=== PATIENT | female | born 1945 | race Caucasian/White ===

== ENCOUNTER 2016-12-22 19:10 | Inpatient (IN) | payer MEDICARE, MEDICAID ==
[2016-12-22] MEDS ORDERED: FENTANYL CITRATE INJ/PF 100 MCG/2 ML AMPUL IV ONE (19:40)
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
[2016-12-22 21:06] LABS: ANION GAP 14 (5-19); BLOOD UREA NITROGEN 47 mg/dL (7-20); CALCIUM 8.9 mg/dL (8.4-10.2); CARBON DIOXIDE 23 mmol/L (22-30); CHLORIDE 108 mmol/L (98-107); GLUCOSE 135 mg/dL (75-110); POTASSIUM 5.1 mmol/L (3.6-5.0); SODIUM 144.7 mmol/L (137-145)
[2016-12-22] MEDS ORDERED: ONDANSETRON HCL INJ/PF 4 MG/2 ML SDV IV ONE (22:23)
[2016-12-22] MEDS ORDERED: MORPHINE SULFATE 10 MG/ML INJ IV ONE (22:23)
[2016-12-22] MEDS ORDERED: NICARDIPINE HCL RTU, ISO-OS 200 ML IV PRN (22:58)
--- NOTE | 2016-12-22 23:04 | EKG REPORT ---
SEVERITY:- ABNORMAL ECG - SINUS RHYTHM VENTRICULAR PREMATURE COMPLEX LEFT ANTERIOR FASCICULAR BLOCK LVH WITH SECONDARY REPOLARIZATION ABNORMALITY ANTERIOR Q WAVES, POSSIBLY DUE TO LVH BORDERLINE PROLONGED QT INTERVAL : Confirmed by: Suly Miranda MD 22-Dec-2016 23:03:20
[2016-12-23 01:30] LABS: ABSOLUTE BASOPHILS # (AUTO) 0.1 10^3/uL (0.0-0.2); ABSOLUTE EOSINOPHILS # (AUTO) 0.1 10^3/uL (0.0-0.6); ABSOLUTE MONOCYTES (AUTO) 0.5 10^3/uL (0.1-1.4); ABSOLUTE NEUT (AUTO) 8.5 10^3/uL (1.7-8.2); BASOPHILS % (AUTO) 0.5 % (0-2); HEMATOCRIT 36.5 % (36.0-47.0); HEMOGLOBIN 11.6 g/dL (12.0-15.5); HGB HCT DIFFERENCE -1.7; LYMPHOCYTES % (AUTO) 9.7 % (13-45); MEAN CORPUSCULAR HEMOGLOBIN 28.5 pg (27.0-33.4); MEAN CORPUSCULAR HGB CONC 31.7 g/dL (32.0-36.0); MEAN CORPUSCULAR VOLUME 90 fl (80-97); MONOCYTES % (AUTO) 4.9 % (3-13); RED BLOOD COUNT 4.06 10^6/uL (3.72-5.28); RED CELL DISTRIBUTION WIDTH 13.1 % (11.5-14.0); SEGMENTED NEUTROPHILS % (AUTO) 83.9 % (42-78); WHITE BLOOD COUNT 10.2 10^3/uL (4.0-10.5)
[2016-12-23 01:44] LABS: ALBUMIN 3.8 g/dL (3.5-5.0); BILIRUBIN,TOTAL 0.5 mg/dL (0.2-1.3)
[2016-12-23 01:56] LABS: CREATINE KINASE MB 0.9 ng/mL (<4.55)
[2016-12-23 01:59] LABS: APPEARANCE,URINE CLEAR; BILIRUBIN,URINE NEGATIVE (NEGATIVE); GLUCOSE, URINE 150 mg/dL (NEGATIVE); KETONES,URINE NEGATIVE (NEGATIVE); LEUKOCYTE ESTERASE,URINE NEGATIVE (NEGATIVE); NITRITE,URINE NEGATIVE (NEGATIVE); PROTEIN,URINE >=500 mg/dL (NEGATIVE); URINE SPECIFIC GRAVITY 1.012; UROBILINOGEN,URINE NEGATIVE mg/dL (<2.0)
[2016-12-23 01:59] LABS: TROPONIN I 0.041 ng/mL
[2016-12-23 04:04] LABS: ANION GAP 13 (5-19); BLOOD UREA NITROGEN 46 mg/dL (7-20); CALCIUM 8.7 mg/dL (8.4-10.2); CARBON DIOXIDE 23 mmol/L (22-30); CHLORIDE 108 mmol/L (98-107); GLUCOSE 145 mg/dL (75-110); POTASSIUM 5.1 mmol/L (3.6-5.0); SODIUM 144.2 mmol/L (137-145)
[2016-12-23] MEDS ORDERED: GLUCAGON,HUMAN RECOMB 1 MG INJ IM PRN (04:20)
[2016-12-23] MEDS ORDERED: DEXTROSE 50%-WATER 25 GM/50 ML DISP.SYRIN IV PRN ×2 (04:20)
[2016-12-23] MEDS ORDERED: DEXTROSE 40% GEL 15 GM TUBE PO PRN ×2 (04:20)
[2016-12-23] MEDS ORDERED: INSULIN LISPRO 100 UNIT/ML 3 ML VIAL SUBCUT PRN (04:20)
[2016-12-23] MEDS ORDERED: ACETAMINOPHEN 325 MG TABLET PO PRN (04:22)
[2016-12-23] MEDS ORDERED: NICARDIPINE HCL RTU, ISO-OS 20 MG/200 ML RTUINJ IV PRN (04:22)
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
[2016-12-23] MEDS ORDERED: ONDANSETRON HCL INJ/PF 4 MG/2 ML SDV ONE (06:43)
[2016-12-23] MEDS: 1/2 NORMAL SALINE 1,000 ML IV PRN ×2 (06:44→21:36)
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
[2016-12-23] MEDS ORDERED: INFLUENZA ADLT QUAD (36MOS+) 2016-17 VAC 0.5 ML SYR IM PRN (07:03)
[2016-12-23 07:43] LABS: ABSOLUTE BASOPHILS # (AUTO) 0.1 10^3/uL (0.0-0.2); ABSOLUTE EOSINOPHILS # (AUTO) 0.1 10^3/uL (0.0-0.6); ABSOLUTE MONOCYTES (AUTO) 0.6 10^3/uL (0.1-1.4); ABSOLUTE NEUT (AUTO) 6.9 10^3/uL (1.7-8.2); BASOPHILS % (AUTO) 0.7 % (0-2); EOSINOPHILS % (AUTO) 0.7 % (0-6); HEMATOCRIT 35.5 % (36.0-47.0); HEMOGLOBIN 11.7 g/dL (12.0-15.5); HGB HCT DIFFERENCE -0.4; LYMPHOCYTES % (AUTO) 11.5 % (13-45); MEAN CORPUSCULAR HEMOGLOBIN 29.2 pg (27.0-33.4); MEAN CORPUSCULAR VOLUME 88 fl (80-97); MONOCYTES % (AUTO) 6.8 % (3-13); RED BLOOD COUNT 4.01 10^6/uL (3.72-5.28); RED CELL DISTRIBUTION WIDTH 13.1 % (11.5-14.0); SEGMENTED NEUTROPHILS % (AUTO) 80.3 % (42-78); WHITE BLOOD COUNT 8.6 10^3/uL (4.0-10.5)
[2016-12-23 07:57] LABS: ANION GAP 12 (5-19); BLOOD UREA NITROGEN 46 mg/dL (7-20); CALCIUM 8.7 mg/dL (8.4-10.2); CARBON DIOXIDE 23 mmol/L (22-30); CHLORIDE 109 mmol/L (98-107); CREATININE RESULT 5.61 mg/dL (0.52-1.25); GLUCOSE 128 mg/dL (75-110); LIPASE 173.8 U/L (23-300); POTASSIUM 5.1 mmol/L (3.6-5.0); SODIUM 143.7 mmol/L (137-145)
[2016-12-23] MEDS ORDERED: ONDANSETRON HCL INJ/PF 4 MG/2 ML SDV IV ONE ×2 (09:54→10:45)
[2016-12-23] MEDS ORDERED: ONDANSETRON HCL INJ/PF 4 MG/2 ML SDV IV PRN (09:54)
[2016-12-23] MEDS: DOCUSATE SODIUM 100 MG CAPSULE PO SCH ×2 (11:44→17:35)
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
[2016-12-23] MEDS ORDERED: (PENDING PHARMACY ID) (Hydroxyzine Hcl [Hydroxyzine Hcl] 25 MG) PO PRN (16:43)
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
[2016-12-23] MEDS ORDERED: ISOSORBIDE MONONITRATE 30 MG TAB.ER.24H PO ONE (18:00)
[2016-12-23] MEDS ORDERED: FEBUXOSTAT 40 MG TABLET PO ONE (18:00)
[2016-12-23] MEDS ORDERED: METOPROLOL TARTRATE 100 MG TABLET PO ONE (18:00)
[2016-12-23] MEDS ORDERED: HYDROXYZINE PAMOATE 25 MG CAPSULE PO PRN (18:01)
[2016-12-23] MEDS: METOPROLOL TARTRATE 100 MG TABLET PO SCH (18:44)
[2016-12-23] MEDS ORDERED: LANSOPRAZOLE 30 MG TAB.RAP.DR PO ONE (19:00)
[2016-12-23] MEDS ORDERED: METOPROLOL TARTRATE 100 MG TABLET PO SCH (22:00)
[2016-12-24 04:32] LABS: HEMATOCRIT 30.8 % (36.0-47.0); HGB HCT DIFFERENCE -0.8; MEAN CORPUSCULAR HEMOGLOBIN 29.2 pg (27.0-33.4); MEAN CORPUSCULAR HGB CONC 32.6 g/dL (32.0-36.0); MEAN CORPUSCULAR VOLUME 89 fl (80-97); RED BLOOD COUNT 3.44 10^6/uL (3.72-5.28); RED CELL DISTRIBUTION WIDTH 13.1 % (11.5-14.0); WHITE BLOOD COUNT 8.6 10^3/uL (4.0-10.5)
[2016-12-24 04:44] LABS: ANION GAP 14 (5-19); BLOOD UREA NITROGEN 40 mg/dL (7-20); CARBON DIOXIDE 20 mmol/L (22-30); CHLORIDE 106 mmol/L (98-107); GLUCOSE 110 mg/dL (75-110); MAGNESIUM 1.4 mg/dL (1.6-2.3); POTASSIUM 4.4 mmol/L (3.6-5.0); SODIUM 139.5 mmol/L (137-145)
[2016-12-24 04:46] LABS: CREATININE RESULT 5.31 mg/dL (0.52-1.25)
[2016-12-24] MEDS: METOPROLOL TARTRATE 100 MG TABLET PO SCH ×2 (05:55→17:09)
[2016-12-24] MEDS: LANSOPRAZOLE 30 MG TAB.RAP.DR PO SCH (05:56)
[2016-12-24] MEDS: ISOSORBIDE MONONITRATE 30 MG TAB.ER.24H PO SCH (09:20)
[2016-12-24] MEDS: FEBUXOSTAT 40 MG TABLET PO SCH (09:20)
[2016-12-24] MEDS: DOCUSATE SODIUM 100 MG CAPSULE PO SCH ×2 (09:20→17:09)
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
[2016-12-24] MEDS: 1/2 NORMAL SALINE 1,000 ML IV PRN (15:10)
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
[2016-12-25] MEDS: 1/2 NORMAL SALINE 1,000 ML IV PRN ×2 (04:28→15:56)
[2016-12-25] MEDS: LANSOPRAZOLE 30 MG TAB.RAP.DR PO SCH (05:19)
[2016-12-25] MEDS: METOPROLOL TARTRATE 100 MG TABLET PO SCH ×2 (05:19→17:20)
[2016-12-25 08:56] LABS: ANION GAP 12 (5-19); BLOOD UREA NITROGEN 48 mg/dL (7-20); CALCIUM 8.2 mg/dL (8.4-10.2); CARBON DIOXIDE 20 mmol/L (22-30); CHLORIDE 105 mmol/L (98-107); GLUCOSE 111 mg/dL (75-110); SODIUM 136.6 mmol/L (137-145)
[2016-12-25] MEDS: DOCUSATE SODIUM 100 MG CAPSULE PO SCH ×2 (09:47→17:22)
[2016-12-25] MEDS: ISOSORBIDE MONONITRATE 30 MG TAB.ER.24H PO SCH (09:47)
[2016-12-25] MEDS: FEBUXOSTAT 40 MG TABLET PO SCH (09:48)
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
[2016-12-26 05:16] LABS: ABSOLUTE BASOPHILS # (AUTO) 0.1 10^3/uL (0.0-0.2); ABSOLUTE EOSINOPHILS # (AUTO) 0.2 10^3/uL (0.0-0.6); ABSOLUTE LYMPHOCYTES (AUTO) 1.4 10^3/uL (0.5-4.7); ABSOLUTE MONOCYTES (AUTO) 0.7 10^3/uL (0.1-1.4); BASOPHILS % (AUTO) 0.7 % (0-2); EOSINOPHILS % (AUTO) 2.5 % (0-6); HEMATOCRIT 29.3 % (36.0-47.0); HEMOGLOBIN 9.7 g/dL (12.0-15.5); HGB HCT DIFFERENCE -0.2; LYMPHOCYTES % (AUTO) 16.5 % (13-45); MEAN CORPUSCULAR HEMOGLOBIN 29.7 pg (27.0-33.4); MEAN CORPUSCULAR HGB CONC 33.3 g/dL (32.0-36.0); MEAN CORPUSCULAR VOLUME 89 fl (80-97); RED BLOOD COUNT 3.28 10^6/uL (3.72-5.28); SEGMENTED NEUTROPHILS % (AUTO) 72.3 % (42-78); WHITE BLOOD COUNT 8.3 10^3/uL (4.0-10.5)
[2016-12-26] MEDS: METOPROLOL TARTRATE 100 MG TABLET PO SCH ×2 (05:25→17:33)
[2016-12-26] MEDS: LANSOPRAZOLE 30 MG TAB.RAP.DR PO SCH (05:25)
[2016-12-26 05:37] LABS: MAGNESIUM 1.5 mg/dL (1.6-2.3); PHOSPHORUS 6.1 mg/dL (2.5-4.5)
[2016-12-26 08:17] LABS: ANION GAP 12 (5-19); BLOOD UREA NITROGEN 50 mg/dL (7-20); CALCIUM 8.3 mg/dL (8.4-10.2); CARBON DIOXIDE 19 mmol/L (22-30); CHLORIDE 107 mmol/L (98-107); CREATININE RESULT 6.52 mg/dL (0.52-1.25); GLUCOSE 104 mg/dL (75-110); POTASSIUM 4.8 mmol/L (3.6-5.0); SODIUM 137.5 mmol/L (137-145)
[2016-12-26] MEDS ORDERED: BACITRACIN INJ 50,000 UNIT VIAL IR PRN (08:33)
[2016-12-26] MEDS ORDERED: OXYCODONE-ACETAMINOPHEN 5-325 MG TABLET PO PRN (08:36)
[2016-12-26] MEDS ORDERED: DIAZEPAM 5 MG TABLET PO PRN (08:37)
[2016-12-26] MEDS: MAGNESIUM SULFATE/D5W 100 ML IV SCH ×2 (09:28→11:29)
[2016-12-26] MEDS ORDERED: FENTANYL CITRATE INJ/PF 100 MCG/2 ML AMPUL ONE (09:37)
[2016-12-26] MEDS ORDERED: MIDAZOLAM 2 MG/2 ML INJ ONE (09:37)
[2016-12-26] MEDS ORDERED: LIDOCAINE 0.5% INJ-PF (5 MG/ML) 50 ML SDV ONE (10:05)
--- NOTE | 2016-12-26 11:28 | Operative Report ---
Operative Report DATE OF SURGERY: 12/26/16 PREOPERATIVE DIAGNOSIS: End stage renal disease requiring hemodialysis. POSTOPERATIVE DIAGNOSIS: End stage renal disease requiring hemodialysis. OPERATION: #1 evaluation and real-time access in the right internal jugular vein. #2 placement of permacatheter via right internal jugular vein. #3 angiogram and interpretation. SURGEON: SIDRA FRAIRE OUTREACH LIAISON: none ANESTHESIA: Moderate Sedation TISSUE REMOVED OR ALTERED: Not applicable. COMPLICATIONS: None ESTIMATED BLOOD LOSS: 5 mL. INTRAOPERATIVE FINDINGS: Of a substantial right internal jugular vein, about 1.5 cm, adequate to support PermCath. Good position and function with the tip of the catheter well down in the right atrial pool. Easy egress of blood and ingress of heparinized solution. Smooth flow of contrast through the right atrium, ventricle and pulmonary outflow tract. PROCEDURE: After obtaining informed consent, the patient was taken to the Conveyor Monitor and positioned supine. The right neck and chest were prepared with chlorhexidine and draped out with sterile linen. After the " universal timeout", in which it was verified that the patient continued to receive antibiotic, the procedure commenced. A steriley sheathed ultrasound probe was used to evaluate the right internal jugular vein. Local anesthesia was infiltrated adjacent to the probe. Access into the right internal jugular vein was obtained using a micropuncture needle, followed by micropuncture wire and then a micropuncture catheter. This was followed by introduction of a 0.035 guidewire the tip of which was placed down into the inferior vena cava . A 23 cm long split catheter was now positioned over the chest and an exit site marked and locally anesthetized ,the catheter was placed between the 2 incisions. Proximally, the catheter was now positioned using a peel-away sheath, after dilation. Easy ingress of heparinized solution and egress of blood obtained through both ports. A completion angiogram was done by injecting contrast. The findings were as dictated. The neck incision was now closed using interrupted 3-0 PDS to the subcutaneous tissues, the catheter was anchored at the exit site using 3- 0 PDS. A Biopatch device was now placed adjacent to the catheter. Dressings were applied and the procedure concluded. Exposure time: 0.1 minutes. Exposure: 22 cGy per centimeters squared. Contrast amount: 5 mL of [id number] low osmolality. Copies of the dictated operative report for Dr. Sidra Syed MD.concluded. Copies of the dictated operative report for Dr. Sidra Syed MD.
[2016-12-26] MEDS: ISOSORBIDE MONONITRATE 30 MG TAB.ER.24H PO SCH (11:30)
[2016-12-26] MEDS: DOCUSATE SODIUM 100 MG CAPSULE PO SCH ×2 (11:30→17:33)
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
[2016-12-26] MEDS: FEBUXOSTAT 40 MG TABLET PO SCH (12:18)
[2016-12-26] MEDS: HYDROMORPHONE HCL INJ/PF 2 MG/ML AMPULE IV PRN ×2 (15:05→21:41)
[2016-12-27] MEDS: METOPROLOL TARTRATE 100 MG TABLET PO SCH ×2 (06:03→17:49)
[2016-12-27] MEDS: LANSOPRAZOLE 30 MG TAB.RAP.DR PO SCH (06:04)
[2016-12-27 06:51] LABS: HEMATOCRIT 29.6 % (36.0-47.0); HEMOGLOBIN 9.7 g/dL (12.0-15.5); HGB HCT DIFFERENCE -0.5; MEAN CORPUSCULAR HEMOGLOBIN 29.3 pg (27.0-33.4); MEAN CORPUSCULAR HGB CONC 32.9 g/dL (32.0-36.0); MEAN CORPUSCULAR VOLUME 89 fl (80-97); RED BLOOD COUNT 3.32 10^6/uL (3.72-5.28); RED CELL DISTRIBUTION WIDTH 13.1 % (11.5-14.0); WHITE BLOOD COUNT 8.6 10^3/uL (4.0-10.5)
[2016-12-27 07:11] LABS: ANION GAP 14 (5-19); BLOOD UREA NITROGEN 51 mg/dL (7-20); CALCIUM 8.6 mg/dL (8.4-10.2); CARBON DIOXIDE 18 mmol/L (22-30); CHLORIDE 106 mmol/L (98-107); CREATININE RESULT 6.76 mg/dL (0.52-1.25); GLUCOSE 97 mg/dL (75-110); PHOSPHORUS 6.5 mg/dL (2.5-4.5); SODIUM 137.9 mmol/L (137-145)
[2016-12-27] MEDS: DOCUSATE SODIUM 100 MG CAPSULE PO SCH ×2 (09:51→17:49)
[2016-12-27] MEDS: FEBUXOSTAT 40 MG TABLET PO SCH (09:52)
--- NOTE | 2016-12-27 11:06 | EKG REPORT ---
SEVERITY:- ABNORMAL ECG - SINUS RHYTHM MULTIFORM VENTRICULAR PREMATURE COMPLEXES LEFT ANTERIOR FASCICULAR BLOCK CONSIDER ANTEROSEPTAL INFARCT : Confirmed by: George Wills 27-Dec-2016 11:06:22
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
[2016-12-27] MEDS: ISOSORBIDE MONONITRATE 30 MG TAB.ER.24H PO SCH (13:59)
[2016-12-27] MEDS ORDERED: HEPARIN SOD (PORCINE) 1,000 UNIT/ML 10 ML VIAL IV PRN (15:20)
[2016-12-27] MEDS ORDERED: EPOETIN ALFA 10,000 UNIT in SYRINGE, DISPOSABLE, 1 EACH IV PRN (15:21)
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
[2016-12-27] MEDS ORDERED: TUBERCULIN,PURIF.PROT.DERIV. 5 TU/0.1 ML TEST 1 ML VIAL ID ONE (20:30)
[2016-12-28] MEDS: LANSOPRAZOLE 30 MG TAB.RAP.DR PO SCH (06:47)
[2016-12-28] MEDS: METOPROLOL TARTRATE 100 MG TABLET PO SCH ×2 (06:47→17:28)
[2016-12-28 08:57] LABS: ANION GAP 14 (5-19); BLOOD UREA NITROGEN 42 mg/dL (7-20); CALCIUM 8.7 mg/dL (8.4-10.2); CARBON DIOXIDE 23 mmol/L (22-30); CHLORIDE 105 mmol/L (98-107); CREATININE RESULT 5.38 mg/dL (0.52-1.25); GLUCOSE 144 mg/dL (75-110); POTASSIUM 4.2 mmol/L (3.6-5.0)
[2016-12-28] MEDS: ISOSORBIDE MONONITRATE 30 MG TAB.ER.24H PO SCH (11:03)
[2016-12-28] MEDS: CALCIUM ACETATE 667 MG CAPSULE PO SCH ×3 (11:04→17:28)
[2016-12-28] MEDS: DOCUSATE SODIUM 100 MG CAPSULE PO SCH ×2 (11:04→17:28)
[2016-12-28] MEDS: FEBUXOSTAT 40 MG TABLET PO SCH (11:05)
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
[2016-12-28] MEDS: FOLIC ACID/VITAMIN B COMP W-C CAPSULE PO SCH (17:29)
[2016-12-28] MEDS: HYDRALAZINE HCL INJ/PF 20 MG/1 ML SDV IV PRN (23:50)
[2016-12-29] MEDS: HYDRALAZINE HCL INJ/PF 20 MG/1 ML SDV IV PRN ×2 (05:22→23:50)
[2016-12-29] MEDS: LANSOPRAZOLE 30 MG TAB.RAP.DR PO SCH (05:22)
[2016-12-29] MEDS: METOPROLOL TARTRATE 100 MG TABLET PO SCH ×2 (05:22→17:09)
[2016-12-29 06:47] LABS: ANION GAP 15 (5-19); BLOOD UREA NITROGEN 54 mg/dL (7-20); CALCIUM 9.2 mg/dL (8.4-10.2); CARBON DIOXIDE 23 mmol/L (22-30); CHLORIDE 105 mmol/L (98-107); CREATININE RESULT 5.54 mg/dL (0.52-1.25); GLUCOSE 106 mg/dL (75-110); POTASSIUM 4.7 mmol/L (3.6-5.0); SODIUM 142.6 mmol/L (137-145)
[2016-12-29] MEDS: CALCIUM ACETATE 667 MG CAPSULE PO SCH ×3 (07:51→16:01)
[2016-12-29] MEDS: AMLODIPINE BESYLATE 5 MG TABLET PO SCH ×2 (09:43→21:12)
[2016-12-29] MEDS: ISOSORBIDE MONONITRATE 30 MG TAB.ER.24H PO SCH (09:43)
[2016-12-29] MEDS: DOCUSATE SODIUM 100 MG CAPSULE PO SCH ×2 (09:44→17:10)
[2016-12-29] MEDS: FEBUXOSTAT 40 MG TABLET PO SCH (11:29)
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
[2016-12-29] MEDS: FOLIC ACID/VITAMIN B COMP W-C CAPSULE PO SCH (15:58)
[2016-12-30] MEDS: METOPROLOL TARTRATE 100 MG TABLET PO SCH (05:30)
[2016-12-30] MEDS: LANSOPRAZOLE 30 MG TAB.RAP.DR PO SCH (05:32)
[2016-12-30 06:27] LABS: ABSOLUTE BASOPHILS # (AUTO) 0.1 10^3/uL (0.0-0.2); ABSOLUTE EOSINOPHILS # (AUTO) 0.2 10^3/uL (0.0-0.6); ABSOLUTE LYMPHOCYTES (AUTO) 1.6 10^3/uL (0.5-4.7); ABSOLUTE NEUT (AUTO) 8.1 10^3/uL (1.7-8.2); BASOPHILS % (AUTO) 0.7 % (0-2); EOSINOPHILS % (AUTO) 1.6 % (0-6); HEMATOCRIT 33.5 % (36.0-47.0); HEMOGLOBIN 11.1 g/dL (12.0-15.5); HGB HCT DIFFERENCE -0.2; LYMPHOCYTES % (AUTO) 14.9 % (13-45); MEAN CORPUSCULAR VOLUME 88 fl (80-97); MONOCYTES % (AUTO) 8.9 % (3-13); RED BLOOD COUNT 3.81 10^6/uL (3.72-5.28); RED CELL DISTRIBUTION WIDTH 13.5 % (11.5-14.0); SEGMENTED NEUTROPHILS % (AUTO) 73.9 % (42-78)
[2016-12-30 06:50] LABS: ANION GAP 15 (5-19); BLOOD UREA NITROGEN 58 mg/dL (7-20); CALCIUM 9.2 mg/dL (8.4-10.2); CARBON DIOXIDE 20 mmol/L (22-30); CHLORIDE 106 mmol/L (98-107); CREATININE RESULT 5.93 mg/dL (0.52-1.25); GLUCOSE 115 mg/dL (75-110); MAGNESIUM 1.8 mg/dL (1.6-2.3); POTASSIUM 4.5 mmol/L (3.6-5.0); SODIUM 141.2 mmol/L (137-145)
[2016-12-30] MEDS ORDERED: HEPARIN SOD (PORCINE) 1,000 UNIT/ML 10 ML VIAL IV PRN (10:13)
[2016-12-30] MEDS: CALCIUM ACETATE 667 MG CAPSULE PO SCH ×2 (11:12→11:15)
[2016-12-30] MEDS: AMLODIPINE BESYLATE 5 MG TABLET PO SCH (11:15)
[2016-12-30] MEDS: FEBUXOSTAT 40 MG TABLET PO SCH (11:15)
[2016-12-30] MEDS: DOCUSATE SODIUM 100 MG CAPSULE PO SCH (11:15)
[2016-12-30] MEDS: ISOSORBIDE MONONITRATE 30 MG TAB.ER.24H PO SCH (11:15)
[2016-12-30 16:18] VITALS: BP 172/80
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
== END 2016-12-30 18:00 | disposition home health service (06) | DRG 304 ==
LOC: ER 19:10 → UNDOADMIN 12-23 01:38 → EH 12-23 01:38 → 3S 12-25 23:56 → 4S 12-28 22:08
PROVIDERS: ADMIT Family Medicine; ATTEND Family Medicine
PROC: 06H033Z Insertion of Infusion Device into Inferior Vena Cava, Percutaneous Approach (ICD-10-PCS; principal; 2016-12-26)
PROC: B549ZZA Ultrasonography of Inferior Vena Cava, Guidance (ICD-10-PCS; 2016-12-26)
PROC: 5A1D60Z (ICD-10-PCS; 2016-12-27)
DX: I16.0 Hypertensive urgency (principal); N18.6 End stage renal disease; N17.9 Acute kidney failure, unspecified; Z68.42 Body mass index [BMI] 45.0-49.9, adult; I12.0 Hypertensive chronic kidney disease with stage 5 chronic kidney disease or end stage renal disease; D64.89 Other specified anemias; E11.22 Type 2 diabetes mellitus with diabetic chronic kidney disease; R07.89 Other chest pain; M19.90 Unspecified osteoarthritis, unspecified site; N28.1 Cyst of kidney, acquired; E66.01 Morbid (severe) obesity due to excess calories; Z84.1 Family history of disorders of kidney and ureter; M54.2 Cervicalgia; V49.88XA Car occupant (driver) (passenger) injured in other specified transport accidents, initial encounter; Y92.410 Unspecified street and highway as the place of occurrence of the external cause; Z91.19 Patient's noncompliance with other medical treatment and regimen; E83.39 Other disorders of phosphorus metabolism; Z88.6 Allergy status to analgesic agent; Z90.49 Acquired absence of other specified parts of digestive tract
CPT/HCPCS: 36415; 36558; 71250; 72125; 74176; 76937; 77001; 80048; 80074; 80076; 81001; 82550; 82553; 82962; 83690; 83735; 84100; 84484; 85025; 85027; 87340; 90686; 93005; 93010; 94799; 96365; 96366; 96375; 99291; C1752; G8978-GP; G8979-GP; G8987-GO; G8988-GO; J0360; J1170; J1644; J1815; J2250; J2270; J2405; J3010; J3475; J3490; L0120; L0172; Q4081; Q9967